=== PATIENT | female | born 1975 | race Caucasian/White ===

== ENCOUNTER 2017-01-09 16:54 | Emergency (ER) | payer OTHER ==
[~2017-01-09] VITALS: Ht 165.1 cm; Wt 84.5 kg
[~2017-01-09 16:54] MED LIST: COLACE100 MG PO; DOCUSATE SODIU100 MG PO; ELAVIL10 MG PO; FLEXERIL10 MG PO; IBUPROFEN800 MG PO; KEFLEX500 MG PO; MIRALAX255 GM PO; MISOPROSTOL200 MCG PO; MOTRIN600 MG PO; MULTIVITAMIN1 EAC2; NAPROSYN500 MG PO; NOHOMEMEDS; NORCO 5/3251 TABLET PO; OXAYDO5 MG PO; PANTOPRAZOLE SO40 MG PO; SENNA8.6 MG PO; SUMATRIPTAN SUC50 MG PO; TRAMADOL HCL50 MG PO; TYLENOL EXTRA500 MG PO; ULTRAM50 MG PO; VALIUM5 MG PO; celeXA PO
[2017-01-09 17:05] VITALS: BP 136/83
[2017-01-09] MEDS ORDERED: NAPROSYN500 MG PO (17:57)
== END 2017-01-09 20:13 | disposition left against medical advice (07) ==
LOC: EME 16:54
DX: S60.222A Contusion of left hand, initial encounter (principal); W23.0XXA Caught, crushed, jammed, or pinched between moving objects, initial encounter; F17.200 Nicotine dependence, unspecified, uncomplicated
CPT/HCPCS: 73130; 99281; 99282

== ENCOUNTER 2017-10-28 15:33 | Emergency (ER) | payer OTHER ==
[~2017-10-28] VITALS: Ht 165.1 cm; Wt 81.6 kg
[2017-10-28 18:18] LABS: HEMATOCRIT 43.5 % (36.0-46.0); HEMOGLOBIN 14.9 G/DL (11.9-15.5); MCH 32.5 PG (29.0-34.0); MCHC 34.3 G/DL (30.0-36.0); MCV 94.8 FL (83-99); PLATELET COUNT 297 K/uL (156-360); RBC DIS.WIDTH-CV 13.3 % (11.8-14.6); RBC DIS.WIDTH-SD 46.5 % (39-53); RED BLOOD COUNT 4.59 M/uL (3.80-5.20); WHITE BLOOD COUNT 10.3 K/uL (4.1-10.2)
[2017-10-28 18:30] LABS: CHLORIDE 108 mEq/L (99-109); SODIUM 141 mEq/L (136-147)
[2017-10-28 18:31] LABS: GLUCOSE 93 mg/dL (70-99)
[2017-10-28 18:35] LABS: CREATININE 0.9 mg/dL (0.6-1.3); GFR ESTIMATE (CALCULATED) > 59 mL/min/
[2017-10-28 18:36] LABS: UREA NITROGEN (BUN) 8 mg/dL (9-23)
[2017-10-28 19:21] LABS: C-REACTIVE PROTEIN 2.2 MG/L (0-10)
[2017-10-28 19:23] LABS: ERTH.SED.RATE 12 MM/HR (0-20)
[2017-10-28] MEDS ORDERED: MOTRIN600 MG PO (19:36)
[2017-10-28] MEDS ORDERED: FLEXERIL10 MG PO (19:36)
[2017-10-28] MEDS ORDERED: PERCOCET 5/31 TABLET PO (19:36)
[2017-10-28 20:10] VITALS: BP 115/62
== END 2017-10-28 20:11 | disposition home or self-care (01) ==
LOC: EME 15:33
PROVIDERS: Physician Assistant
DX: M54.5 Low back pain (principal); M25.512 Pain in left shoulder; M25.561 Pain in right knee; M25.522 Pain in left elbow; M79.642 Pain in left hand; F17.200 Nicotine dependence, unspecified, uncomplicated
CPT/HCPCS: 80048; 85027; 85651; 86140; 99281; 99284; J1100